=== PATIENT | female | born 1955 | race Caucasian/White ===

== ENCOUNTER → 2018-03-19 | Outpatient (CLI) | payer OTHER ==
[~2018-03-19] VITALS: Ht 165.1 cm; Wt 113.4 kg
[~2018-03-19] MED LIST: ALDACTONE50 MG PO; ANTIVERT25 MG PO; ASTEPRO205.5 MCG/ NASAL; CALCIUM 600 +1 EAC1 PO; CENTRUM SILVER1 EAC4 PO; CLONAZEPAM 0.50.5 M1 PO; COZAAR 50 MG TA50 M2 PO; CYMBALTA30 MG PO; FISH OIL 1,001000 M2 PO; GLUCOSAMINE CO1 EACH PO; HAIR, SKIN & N1 EAC3 PO; HYDROCODON-ACE1 EAC5 PO; IMURAN 50MG TAB50 M1 PO; KEPPRA 500 MG500 M2 PO; LASIX 40 MG TAB40 M2 PO; LINZESS290 MCG PO; MIRALAX17 GM PO; NASACORT10.8 ML NASAL; NEXIUM40 MG PO; OCUVITE TABLET1 EAC1 PO; ONDANSETRON HCL4 M2 PO; OSTEO BI-FLEX1 EAC2 PO; SINGULAIR 10 MG10 M1 PO; STOOL SOFTENER100 M1 PO; SYMBICORT160 MCG/4. INH; TRAZODONE HCL50 MG PO; TUMS PO; VENTOLIN HFA 1818 GM INH; VITAMIN E400 UNIT PO; VITAMINC500 PO; ZANTAC 150MG T150 MG PO; ZYRTEC10 M5 PO
--- NOTE | ~2018-03-19 | P ---
[facility] [place] [address] PROCEDURE REPORT Name: TEAGAN WHEELER [id number] Admission: 03/19/18 Attend Phys: Jesus Cruz MD Discharge: Date of : 53 Report #: [id number] THIS REPORT FOR: //name// CC: Jesus Cruz BRIEF HISTORY: The patient is a 62-year-old woman known to me with autoimmune hepatitis and cirrhosis and history of esophageal varices. She also has a history of significant acid reflux disease with previous peptic esophagitis noted endoscopically. PREOPERATIVE DIAGNOSES: Cirrhosis and reflux disease with history of banding of esophageal varices. POSTOPERATIVE DIAGNOSES: 1. Esophageal varices grade 0. 2. A 4-5 cm sliding type hiatus hernia. 3. Diffuse gastritis. MEDICATIONS: Deep sedation with propofol per anesthesia. SPECIMEN: None. ESTIMATED BLOOD LOSS: None. PROCEDURE: EGD. FINDINGS: Prior to propofol sedation, the procedure of upper endoscopy discussed with the patient as well as potential risks, benefits, and complications. She indicates she understands and desires to proceed. With the patient in left lateral decubitus position, the [employer] video endoscope was inserted in the cervical esophagus under direct vision without difficulty. Examination of this organ through its entire length revealed normal esophageal mucosa. The distal esophagus looked very good. She is known to have esophageal varices with previous banding. I do not see significant varices whatsoever on today's exam. Specifically, no varices are seen that require banding today. The squamocolumnar junction was inspected and noted to be intact. There were no ulcers or erosions. This is an improvement from her last endoscopic examination. No strictures or masses were seen. There was no evidence of [place] mucosa. The scope was advanced and she has a 4-5 cm sliding type hiatus hernia. Mucosa in the hernia is unremarkable. The scope was advanced into the stomach, which was examined on end view as well as retroflexed views. She has a pattern of linear erythema in the antrum, which may be a result of gastritis, also may be result of portal hypertension. However, gastric varices were not seen. The pattern of erythema was not noted in the proximal stomach. Upon [facility] [address] [place] [address] PROCEDURE REPORT Name: TEAGAN WHEELER [facility] Room #: [facility]#: [id number] Admission: 03/19/18 Attend Phys: Jesus Cruz MD Discharge: Date of : 53 Report #: [id number] retroflexion, no varices were seen. A hiatus hernia was noted. No masses were seen. The pylorus, duodenal bulb, and postbulbar sweep were inspected and all noted to be within normal limits. At that point, the scope was slowly withdrawn and careful circumferential views confirmed the above findings. The patient tolerated the procedure well. CONDITION OF THE PATIENT UPON DISCHARGE: Following procedure, the patient drowsy. She will be discharged to home when fully ambulatory. INSTRUCTIONS TO THE PATIENT AND FAMILY AT THE TIME OF DISCHARGE: As per esophageal varices, I do not see significant varices on examination today. We will have her return in 1 year for a followup exam and possible banding. As per for her esophagitis, she has normal appearing mucosa and she will continue her proton pump inhibitors. The patient also complains of nausea. It is noted she does take hydrocodone typically about 2 daily, this may certainly be a factor. She notes that it has improved. She has it less than once daily at this point in time, she should continue to use Zofran as needed. If symptoms worsen, transderm scopolamine patch may be a consideration. We will have her return to see me in followup in the office in about 6 months. We will also obtain an ultrasound for screening purposes. The patient also reports a blue belly button. On exam today, she may have a very tiny hernia, which is empty at this time. It is noted on CT last year that she had a recanalized umbilical vein and this may be what is giving the purple appearance. I do not note any tenderness or incarcerated umbilical hernia. <ELECTRONICALLY SIGNED> By: Jesus Cruz MD 03/19/18 [id number] Jesus Cruz MD /nt
== END | disposition home or self-care (01) ==
LOC: GI 06:19
DX: K29.70 Gastritis, unspecified, without bleeding (principal); I85.00 Esophageal varices without bleeding; K44.9 Diaphragmatic hernia without obstruction or gangrene; I10 Essential (primary) hypertension; J45.909 Unspecified asthma, uncomplicated; K75.4 Autoimmune hepatitis; M19.90 Unspecified osteoarthritis, unspecified site; F32.9 Major depressive disorder, single episode, unspecified; F41.8 Other specified anxiety disorders; Z90.710 Acquired absence of both cervix and uterus; Z90.49 Acquired absence of other specified parts of digestive tract; Z87.19 Personal history of other diseases of the digestive system; Z98.890 Other specified postprocedural states; Z88.0 Allergy status to penicillin; Z88.8 Allergy status to other drugs, medicaments and biological substances; Z79.899 Other long term (current) drug therapy; Z79.891 Long term (current) use of opiate analgesic
CPT/HCPCS: 62110; 62900